=== PATIENT | female | born 1995 | race Caucasian/White ===

== ENCOUNTER 2017-04-22 00:03 | Emergency (ER) | payer OTHER ==
[2017-04-22 00:09] VITALS: BP 111/69; PULSE 91; RESP 18; TEMP 98
--- NOTE | 2017-04-22 00:35 | ED ---
Overdose HPI - General Chief Complaint: Overdose Stated Complaint: Drug Overdose Time Seen by Provider: 04/22/17 00:16 Source: patient, EMS, RN notes reviewed, old records reviewed Mode of arrival: EMS Limitations: no limitations - History of Present Illness Initial Comments: This is a 21 year old female arriving via EMS for CC of drug overdose. Patient mother reports that patient was unresponsive in the shower, and patient mother has IM Narcan given to her due to the amount of narcotics she is prescribed. Patient mother gave 1mg Narcan IM, and patient became more arroused. At that time mother called EMS, the arrived and gave patient 1mg IV Narcan. Patient became alert and oriented X4, and denies any drug use. PAtient mother states that patient likely used mothers prescription drugs however she is not sure. Patient reports that she does want to go home, and denies any previous drug use. Patient refuses to answer any questions about today. She does state that she is not suicidal and has no plans to harm herself. - Related Data Previous Rx's Medication Instructions Recorded Albuterol Nebulized [Ventolin 2.5 mg INHALATION Q4H PRN #2 box 09/09/14 Nebulized] Albuterol Sulfate [Ventolin HFA] 2 puff INHALATION Q4H PRN #1 09/09/14 inhaler Amoxicillin/Potassium Clav 1 each PO Q12HR #20 tab 09/09/14 [Augmentin 875-125 Tablet] Benzonatate [Tessalon Perles] 100 mg PO TID PRN #30 capsule 09/09/14 Allergies Allergy/AdvReac Type Severity Reaction Status Date / Time sulfamethoxazole Allergy Swelling Verified 04/22/17 00:06 [From Bactrim] trimethoprim [From Bactrim] Allergy Swelling Verified 04/22/17 00:06 Review of Systems ROS Statement: Those systems with pertinent positive or pertinent negative responses have been documented in the HPI. ROS Other: All systems not noted in ROS Statement are negative. Past Medical History Past Medical History: No Reported History History of Any Multi-Drug Resistant Organisms: MRSA Date of last positivie culture/infection: 2010 MDRO Source:: left axilla Past Surgical History: Section Past Psychological History: No Psychological Hx Reported Smoking Status: Current every day smoker Past Alcohol Use History: Daily Past Drug Use History: Marijuana General Exam - General Exam Comments Initial Comments: Patient is a hostile 21 year old female, she does not appear to be in any acute distress. PAtient refuses to answer any questions. Limitations: no limitations General appearance: alert, in no apparent distress Head exam: Present: atraumatic, normocephalic, normal inspection Eye exam: Present: normal appearance, PERRL, EOMI. Absent: scleral icterus, conjunctival injection, periorbital swelling ENT exam: Present: normal exam, mucous membranes moist Neck exam: Present: normal inspection. Absent: tenderness, meningismus, lymphadenopathy Respiratory exam: Present: normal lung sounds bilaterally. Absent: respiratory distress, wheezes, rales, rhonchi, stridor Cardiovascular Exam: Present: regular rate, normal rhythm, normal heart sounds. Absent: systolic murmur, diastolic murmur, rubs, gallop, clicks GI/Abdominal exam: Present: soft, normal bowel sounds. Absent: distended, tenderness, guarding, rebound, rigid Extremities exam: Present: normal inspection, full ROM, normal capillary refill. Absent: tenderness, pedal edema, joint swelling, calf tenderness Back exam: Present: normal inspection Neurological exam: Present: alert, oriented X3, CN II-XII intact Psychiatric exam: Present: normal affect, normal mood Skin exam: Present: warm, dry, intact, normal color. Absent: rash Course Vital Signs 04/22/17 00:06 Temperature 98.0 F Pulse Rate 91 Respiratory 18 Rate Blood Pressure 111/69 O2 Sat by Pulse 98 Oximetry Medical Decision Making - Medical Decision Making This is a 21 year old female arriving via EMS for CC of drug overdose. Patient mother reports that patient was unresponsive in the shower, and patient mother has IM Narcan given to her due to the amount of narcotics she is prescribed. Patient mother gave 1mg Narcan IM, and patient became more arroused. At that time mother called EMS, the arrived and gave patient 1mg IV Narcan. Patient became alert and oriented X4, and denies any drug use. PAtient mother states that patient likely used mothers prescription drugs however she is not sure. Patient reports that she does want to go home, and denies any previous drug use. Patient denies suicidal ideation. Patient is alert and oriented. Patient mother and patient are advised for monitoring for the next few hours. Patient mother and patient refuse to stay for monitoring. Patient agrees to safety contract. Discussed that they are to return if ptient becomes unoriented again. Disposition Clinical Impression: Overdose Disposition: HOME SELF-CARE Condition: Good Instructions: Adult Overdose (ED), Opioid Overdose (ED) Additional Instructions: Patient advised to follow-up with a primary care physician or counseling services. Return to the emergency department if any alarming signs or symptoms occur. Referrals: None,Stated [Primary Care Provider] - 1-2 days Time of Disposition: 00:34
== END 2017-04-22 00:49 | disposition home or self-care (01) ==
LOC: EC 00:03 → SUPCPDRO 00:03 → EC 00:49
DX: T40.601A Poisoning by unspecified narcotics, accidental (unintentional), initial encounter (principal); F17.200 Nicotine dependence, unspecified, uncomplicated; Z88.2 Allergy status to sulfonamides
CPT/HCPCS: 99284

== ENCOUNTER 2019-06-18 13:25 | Emergency (ER) | payer OTHER ==
[2019-06-18 13:31] VITALS: BP 121/61; PULSE 73; RESP 18; TEMP 98.1
--- NOTE | 2019-06-18 13:31 | ED ---
Abdominal Pain HPI - General Chief Complaint: Vaginal Bleeding Stated Complaint: Vaginal bleeding Time Seen by Provider: 06/18/19 13:28 - History of Present Illness Initial Comments: 24-year-old female presenting today for chief complaint of vaginal bleeding and cramping. Patient states that 5 weeks ago she had an . She states that since she had consistent on and off bleeding. She states at times it is brown other times is bright red blood. She states that she was in the shower this morning she had bright red large-volume vaginal bleeding. She states she was concerned by the amount of bleeding presented to the [facility] for evaluation. She states roughly nightly she had an ultrasound obtained as well as urinalysis and laboratory studies. She states that she was told she needed to be transferred to [facility] for evaluation by OBGYN, there was concern for retained products. Patient denies any fevers. She denies any foul odor from the vagina or vaginal discharge. Patient states the pain is not severe is more cramping length over the area of her previous . Upon chart review from studies obtained at the [facility] hemoglobin stable no elevation of white blood cell count. HCG (-). Patient appears well there is no signs of acute distress. VS WNL. Patient is afebrile and HR is not elevated. - Related Data Previous Rx's Medication Instructions Recorded Albuterol Nebulized [Ventolin 2.5 mg INHALATION Q4H PRN #2 box 09/09/14 Nebulized] Albuterol Sulfate [Ventolin HFA] 2 puff INHALATION Q4H PRN #1 09/09/14 inhaler Amoxicillin/Potassium Clav 1 each PO Q12HR #20 tab 09/09/14 [Augmentin 875-125 Tablet] Benzonatate [Tessalon Perles] 100 mg PO TID PRN #30 capsule 09/09/14 Allergies Allergy/AdvReac Type Severity Reaction Status Date / Time sulfamethoxazole Allergy Swelling Verified 04/22/17 00:06 [From Bactrim] trimethoprim [From Bactrim] Allergy Swelling Verified 04/22/17 00:06 Review of Systems ROS Statement: Those systems with pertinent positive or pertinent negative responses have been documented in the HPI. ROS Other: All systems not noted in ROS Statement are negative. Past Medical History Past Medical History: No Reported History History of Any Multi-Drug Resistant Organisms: MRSA Date of last positivie culture/infection: 2010 MDRO Source:: left axilla Past Surgical History: Section Past Psychological History: No Psychological Hx Reported Smoking Status: Current every day smoker Past Alcohol Use History: Daily Past Drug Use History: Marijuana General Exam - General Exam Comments Initial Comments: General: The patient is awake and alert, in no distress, and does not appear acutely ill. Eye: Pupils are equal, round and reactive to light, extra-ocular movements are intact. No nystagmus. There is normal conjunctiva bilaterally. No signs of icterus. Ears, nose, mouth and throat: There are moist mucous membranes and no oral lesions. Neck: The neck is supple, there is no tenderness or JVD. Cardiovascular: There is a regular rate and rhythm. No murmur, rub or gallop is appreciated. Respiratory: Lungs are clear to auscultation, respirations are non-labored, breath sounds are equal. No wheezes, stridor, rales, or rhonchi. Gastrointestinal: Soft, non-distended, very minimal discomfort to deep palpation of the pelvic region of the abdomen without masses or organomegaly noted. There is no rebound or guarding present. No CVA tenderness. Bowel sounds are unremarkable. Musculoskeletal: Normal ROM, no tenderness. Strength 5/5. Sensation intact. Radial pulses equal bilaterally 2+. Neurological: A&O x 3. CN II-XII intact, There are no obvious motor or sensory deficits. Coordination appears grossly intact. Speech is normal. Skin: Skin is warm and dry and no rashes or lesions are noted. Psychiatric: Cooperative, appropriate mood & affect, normal judgment. Course Vital Signs 06/18/19 13:28 Temperature 98.1 F Pulse Rate 73 Respiratory 18 Rate Blood Pressure 121/61 O2 Sat by Pulse 98 Oximetry Medical Decision Making - Medical Decision Making 24yo female presenting for transfer from [facility] for vaginal bleeding cramping status post . Concern for retained products. Imaging was reviewed by Dr. Bryant, she evaluated patinet performing pelvic in ER. ABdominal exam revealed minimal tenderness. Patient no leukocytosis hemoglobin stable hCG negative. Patient states she feels fine. No fevers. No malodorous discharge. At this time Dr. Bryant recommends discharge home and she believes this is menorrhagia. Patient is agreeable to this care plan and was discharged. - Lab Data Lab Results 06/18/19 Range/Units 14:05 Trichomonas Ag (Rapid) Negative (Negative) Disposition Clinical Impression: Vaginal bleeding, Menorrhagia Disposition: HOME SELF-CARE Condition: Good Instructions (If sedation given, give patient instructions): Menorrhagia (ED) Additional Instructions: Please use medication as discussed. Please follow-up with family doctor in the next 2 days. Please return to emergency room if the symptoms increase or worsen or for any other concerns. Is patient prescribed a controlled substance at d/c from ED?: No Referrals: Sterling Ambrocio MD [Primary Care Provider] - 1-2 days Time of Disposition: 14:21
--- NOTE | 2019-06-18 14:20 | P.OBCN ---
History of Present Illness Consult date: 06/18/19 Requesting physician: Sergo Solitario (ED consult) Reason for consult: other (Heavy vaginal bleeding status post elective termination of approximately 56 weeks ago.) Chief complaint: Vaginal bleeding status post elective approximately 5- 6 weeks. History of present illness: This is a 24-year-old 4 para 1031 that presents to [facility] with complaints of increasing vaginal bleeding when she was in the shower this morning. Patient states she had an elective completed an outside facility approximate 5-6 weeks ago. Patient states she was given to doses of medication 5 pills each to be taken. Patient states she did have some large clots around that time. Patient states she thought she was around 8 weeks at the time of the termination of . Patient states she woke this morning was in the shower and had blood drawn in running down her leg. She states she was unable to even walk to the bathroom without washcloth between her legs. Patient denies dizziness fevers chills nausea and vomiting. Patient was transferred to [facility]. Upon entering the room patient states her bleeding has slowed quite significantly. She is denying any cramping or discomfort. She states she typically has menstrual cycles every month lasting 6-7 days with a moderate flow, she is currently not taking her control pill and declines the need for one. She does not have a current computer programming professor taking care for the last when she saw was 6 years ago with the of her daughter. She does admit to being a smoker 1-2 packs per day, and did a line of cocaine yesterday "for her birthday" and admits to regular marijuana use. Review of Systems Constitutional: Denies chills, Denies fatigue, Denies fever Ears, nose, mouth and throat: Denies headache Cardiovascular: Denies chest pain, Denies edema, Denies leg edema Respiratory: Denies cough, Denies dyspnea Gastrointestinal: Denies constipation, Denies diarrhea, Denies nausea, Denies vomiting Genitourinary: Reports menorrhagia, Denies dysuria, Denies urge incontinence Menstruation: Reports as per HPI Past Medical History Past Medical History: No Reported History History of Any Multi-Drug Resistant Organisms: MRSA Year Discovered:: 2010 MDRO Source:: left axilla Past Surgical History: Section Past Psychological History: No Psychological Hx Reported Smoking Status: Current every day smoker Past Alcohol Use History: Daily Past Drug Use History: Marijuana Medications and Allergies Home Medications Medication Instructions Recorded Confirmed Type Albuterol Nebulized [Ventolin 2.5 mg INHALATION Q4H PRN #2 box 09/09/14 Rx Nebulized] Albuterol Sulfate [Ventolin HFA] 2 puff INHALATION Q4H PRN #1 09/09/14 Rx inhaler Amoxicillin/Potassium Clav 1 each PO Q12HR #20 tab 09/09/14 Rx [Augmentin 875-125 Tablet] Benzonatate [Tessalon Perles] 100 mg PO TID PRN #30 capsule 09/09/14 Rx Allergies Allergy/AdvReac Type Severity Reaction Status Date / Time sulfamethoxazole Allergy Swelling Verified 04/22/17 00:06 [From Bactrim] trimethoprim [From Bactrim] Allergy Swelling Verified 04/22/17 00:06 Exam Osteopathic Statement: *. No significant issues noted on an osteopathic structural exam other than those noted in the History and Physical/Consult. Vital Signs Temp Pulse Resp BP Pulse Ox 06/18/19 13:28 98.1 F 73 18 121/61 98 Intake and Output 06/17/19 06/18/19 06/18/19 22:59 06:59 14:59 Other: Weight 63.503 kg Targeted physical exam is performed on this patient in general this is a well- nourished well-developed alert female in no acute distress, her breathing is noted to be nonlabored her heart has a regular rate and rhythm her abdomen is noted to be soft nontender on no urinary exam external genitalia is normal for age the vaginal necrosis noted to be pink and well rugated her cervix is noted to be closed there is minimal bleeding in the vaginal vault and no blood coming from the cervix. Cultures are done for gonorrhea chlamydia and Trichomonas. On bimanual exam the uterus is approximately 7 weeks' size, mobile nontender. No adnexal masses are palpated and no adnexal tenderness is noted Assessment and Plan (1) Menorrhagia Current Visit: Yes Status: Acute Code(s): N92.0 - EXCESSIVE AND FREQUENT MENSTRUATION WITH REGULAR CYCLE SNOMED Code(s): 849231495 (2) Status post elective Current Visit: Yes Status: Acute Code(s): Z98.890 - OTHER SPECIFIED POSTPROCEDURAL STATES SNOMED Code(s): 170604917 (3) Cocaine abuse Current Visit: Yes Status: Acute Code(s): F14.10 - COCAINE ABUSE, UNCOMPL ICATED SNOMED Code(s): 07050037 (4) Smoker Current Visit: Yes Status: Acute Code(s): F17.200 - NICOTINE DEPENDENCE, UNSPECIFIED, UNCOMPLICATED SNOMED Code(s): 72568417 (5) Marijuana abuse Current Visit: Yes Status: Acute Code(s): F12.10 - CANNABIS ABUSE, UNCOMPLICATED SNOMED Code(s): 66177801 Plan: Exam findings are discussed with this patient in detail her hormone level is negative today. Given her exam there is no need for further intervention. I do believe this is just a menstrual cycle. She is urged to establish care with a local computer programming professor for routine FREIGHT CLERK care. Contraception is discussed with this patient and she declines. Drug use is addressed in addition. She is stable for discharge home.
[2019-06-20 12:29] LABS: N. gonorrhoeae,PCR Positive (Neg,Equiv); Neisseria Source Cervix
[2019-06-20 12:37] LABS: C. trachomatis,PCR Negative (Neg,Equiv); Chlamydia trachomatis Source Cervix
[2019-06-21] MEDS ORDERED: cefTRIAXone 250 MG VIAL IM STA (11:23)
== END 2019-06-18 14:30 | disposition home or self-care (01) ==
LOC: EC 13:25
DX: N92.0 Excessive and frequent menstruation with regular cycle (principal); F17.200 Nicotine dependence, unspecified, uncomplicated; Z88.2 Allergy status to sulfonamides; Z86.14 Personal history of Methicillin resistant Staphylococcus aureus infection; Z98.890 Other specified postprocedural states
CPT/HCPCS: 87491; 87591; 87808; 99284

== ENCOUNTER → 2019-06-21 | Outpatient (CLI) | payer OTHER ==
[~2019-06-21] MED LIST: cefTRIAXone 250 MG VIAL IM STA
== END ==
LOC: EC 12:02
PROVIDERS: ATTEND Emergency Medicine
DX: A64 Unspecified sexually transmitted disease (principal)
CPT/HCPCS: 96372; J0696

== ENCOUNTER 2024-06-10 17:02 | Observation (INO) | payer OTHER ==
--- NOTE | 2024-06-10 17:33 | ED ---
Female Urogenital HPI - General Source: patient, RN notes reviewed Mode of arrival: EMS Limitations: no limitations - History of Present Illness MD Complaint: vaginal bleeding <Merlyn Valladares - Last Filed: 06/11/24 11:04> <Krystle Martines - Last Filed: 06/11/24 13:51> - General Chief complaint: Vaginal Bleeding Stated complaint: vag bleeding Time Seen by Provider: 06/10/24 17:19 - History of Present Illness Initial comments: This is a 28-year-old female who presents to the emergency department for vaginal bleeding in . Patient is approximately 6-7 weeks and . A couple of hours prior to arrival she started to develop heavy vaginal bleeding and is passing a large amount of clots. Reports generalized abdominal cramping as well. She does not currently have an INFORMATION [employer]. (Merlyn Valladares) - Related Data Home Medications Medication Instructions Recorded Confirmed buprenorphine HCL [Subutex] 8 mg SL TID 06/10/24 06/10/24 Allergies Allergy/AdvReac Type Severity Reaction Status Date / Time sulfamethoxazole Allergy throat Verified 06/10/24 17:41 [From Bactrim] swelling trimethoprim [From Bactrim] Allergy throat Verified 06/10/24 17:41 swelling Review of Systems ROS Other: All systems not noted in ROS Statement are negative. <Merlyn Valladares - Last Filed: 06/11/24 11:04> ROS Other: All systems not noted in ROS Statement are negative. <Krystle Martines - Last Filed: 06/11/24 13:51> ROS Statement: Those systems with pertinent positive or pertinent negative responses have been documented in the HPI. Past Medical History Past Medical History: No Reported History History of Any Multi-Drug Resistant Organisms: MRSA Date of last positivie culture/infection: 2010 MDRO Source:: left axilla Past Surgical History: Section Past Psychological History: No Psychological Hx Reported Past Alcohol Use History: Daily Past Drug Use History: Marijuana <Merlyn Valladares - Last Filed: 06/11/24 11:04> General Exam Limitations: no limitations General appearance: alert, in distress Head exam: Present: atraumatic, normocephalic, normal inspection Respiratory exam: Present: normal lung sounds bilaterally. Absent: respiratory distress, wheezes, rales, rhonchi, stridor Cardiovascular Exam: Present: regular rate, normal rhythm, normal heart sounds. Absent: systolic murmur, diastolic murmur, rubs, gallop, clicks External exam: Present: other (Active vaginal bleeding with a large amount of clots. Nonvisualization on speculum exam due to bleeding.) Neurological exam: Present: alert, oriented X3, CN II-XII intact Psychiatric exam: Present: normal affect, normal mood Skin exam: Present: warm, dry, intact, pallor. Absent: rash <Merlyn Valladares - Last Filed: 06/11/24 11:04> Course Vital Signs 06/10/24 06/10/24 06/10/24 18:00 18:22 18:34 Temperature 98.7 F Pulse Rate 126 H 110 H 116 H Respiratory 16 16 16 Rate Blood Pressure 84/67 92/67 96/57 O2 Sat by Pulse 96 95 96 Oximetry 06/10/24 06/10/24 06/10/24 18:41 18:46 18:51 Temperature Pulse Rate 108 H 124 H 128 H Respiratory 16 20 20 Rate Blood Pressure 97/63 80/55 111/65 O2 Sat by Pulse 100 99 100 Oximetry 06/10/24 06/10/24 06/10/24 19:43 19:47 19:48 Temperature 98.5 F 98.1 F Pulse Rate 126 H 96 124 H Respiratory 20 18 17 Rate Blood Pressure 71/27 64/34 91/57 O2 Sat by Pulse 98 96 95 Oximetry 06/10/24 06/10/24 06/10/24 19:55 20:05 20:23 Temperature 98.2 F 98.8 F 98.6 F Pulse Rate 96 93 96 Respiratory 16 16 16 Rate Blood Pressure 98/55 89/57 100/54 O2 Sat by Pulse 96 97 95 Oximetry 06/10/24 06/10/24 06/10/24 21:14 21:38 21:50 Temperature 98.5 F 98.2 F 98.4 F Pulse Rate 90 112 H 84 Respiratory 16 16 16 Rate Blood Pressure 97/55 103/56 103/56 O2 Sat by Pulse 95 98 98 Oximetry Medical Decision Making - Lab Data Result diagrams: 06/11/24 03:14 06/10/24 18:00 - Radiology Data Radiology results: report reviewed, image reviewed <Merlyn Valladares - Last Filed: 06/11/24 11:04> - Lab Data Result diagrams: 06/11/24 03:14 06/10/24 18:00 <Meme Martinesah Nichol - Last Filed: 06/11/24 13:51> - Medical Decision Making This is a 28 year old female who presents to the emergency department for vaginal bleeding. Was pt. sent in by a medical professional or institution? @ -No Did you speak to anyone other than the patient for history? @ -No Did you review nursing and triage notes? @ -Yes, and I agree, it is accurate with regards to the patient's symptoms. Were old charts reviewed? @ -No Differential Diagnosis? @ -Differential Vaginal Bleeding: Spontaneous , threatened , molar , ectopic , incompetent cervix, placenta previa, uterine rupture, dysfunctional uterine bleeding, hemorrhage, uterine fibroids, malignancy, coagulopathy, PID, cervicitis, adenomyosis, vaginal trauma, this is not meant to be an all- inclusive list. EKG interpreted by me (3pts min.)? @ -Not obtained X-rays interpreted by me (1pt min.)? @ -Not obtained CT interpreted by me (1pt min.)? @ -Not obtained U/S interpreted by me (1pt. min.)? @ -Transvaginal ultrasound obtained. My interpretation identifies no evidence of an IUP. What testing was considered but not performed? (CT, X-rays, U/S, labs)? Why? @ -None What meds were considered but not given? Why? @ -None Did you discuss the management of the patient with other professionals? @ -Yes, Dr. Collins, INFORMATION [employer], who evaluated the patient at bedside and was able to remove the retained products. Requested admission overnight for monitor ing. Did you reconcile home meds? @ -No Was smoking cessation discussed for >3mins.? @ -I discussed smoking cessation for greater than 3 minutes. The risk of smoking were discussed with the patient including but not limited to risks of cancer, stroke, coronary artery disease and COPD. Also discussed with patient were multiple methods of quitting smoking. Lastly we discussed the financial cost of smoking. Was critical care preformed (if so, how long)? @ -No Were there social determinants of health that impacted care today? How? (Homelessness, low income, unemployed, alcoholism, drug addiction, transp ortation, low edu. Level, literacy, decrease access to med. care, mcc, rehab)? @ -No Was there de-escalation of care discussed even if they declined? (Discuss DNR or withdrawal of care, Hospice)? @ -No What co-morbidities impacted this encounter? (DM, HTN, Smoking, COPD, CAD, Cancer, CVA, Hep., AIDS, mental health diagnosis, sleep apnea, morbid obesity)? @ -Smoking, Was patient admitted / discharged? @ -Admitted. On arrival patient had active vaginal bleeding and was passing a large amount of clots. She was also persistently hypotensive and tachycardic. Lab work and pelvic ultrasound was ordered. Initial hemoglobin 10.3. Prior to results returning, there was concern about the patient continuing to decompensate, and case was discussed with Dr. Collins, INFORMATION [employer]. He came to evaluate the patient at bedside and was able to remove the retained products that were largely in the patient's vaginal canal. He requested patient being monitored overnight with repeat CBC in the morning. CBC was ordered to be repeated tomorrow morning and patient was admitted to [facility] service for further management. She was given a transfusion with 1 unit of PRBCs. The rest of the lab [place] [address]. Pelvic ultrasound demonstrates heterogeneous material in the lower uterine cavity and cervix, likely blood and concerning for failed . Case discussed with ED attending Dr. Martines. Undiagnosed new problem with uncertain prognosis? @ -None Drug Therapy requiring intensive monitoring for toxicity (Heparin, Nitro, Insulin, Cardizem)? @ -None Were any procedures done? @ -None Diagnosis/symptom? @ -Incomplete miscarriage with blood clot Acute, or Chronic, or Acute on Chronic? @ -Acute Uncomplicated (without systemic symptoms) or Complicated (systemic symptoms)? @ -Complicated Side effects of treatment? @ -None Exacerbation, Progression, or Severe Exacerbation] @ -Not applicable Poses a threat to life or bodily function? @ -Yes, can lead to further blood loss, which can become life threatening. (Merlyn Valladares) I evaluated the patient myself. She was hypotensive and tachycardic with approximately 300 cc of blood within a bedpan. Pain medications are ordered. Type and screen has been ordered however at this time I did recommend rapid transfusion without crossmatch due to hypotension and tachycardia. Dr. Collins was made aware of the patient's presence in the emergency department and he does arrive to the hospital shortly after being consulted. He does perform an additional bedside evaluation with clot and tissue removal. Critical care time of 35 minutes for transfusion of blood products due to hemodynamic instability. (Krystle Martines) - Lab Data Lab Results 06/10/24 06/10/24 06/10/24 Range/Units 18:00 18:00 18:00 WBC 10.6 (3.8-10.6) k/uL RBC 3.71 L (3.80-5.40) m/uL Hgb 10.3 L (11.4-16.0) gm/dL Hct 30.9 L (34.0-46.0) % MCV 83.4 (80.0-100.0) fL MCH 27.9 (25.0-35.0) pg MCHC 33.5 (31.0-37.0) g/dL RDW 14.4 (11.5-15.5) % Plt Count 291 (150-450) k/uL MPV 8.3 Neutrophils % 86 % Lymphocytes % 10 % Monocytes % 3 % Eosinophils % 1 % Basophils % 0 % Neutrophils # 9.1 H (1.3-7.7) k/uL Lymphocytes # 1.1 (1.0-4.8) k/uL Monocytes # 0.3 (0-1.0) k/uL Eosinophils # 0.1 (0-0.7) k/uL Basophils # 0.0 (0-0.2) k/uL PT 11.8 (10.0-12.5) sec INR 1.1 (<1.2) APTT 19.5 L (22.0-30.0) sec Sodium 134 L (137-145) mmol/L Potassium 3.7 (3.5-5.1) mmol/L Chloride 108 H (98-107) mmol/L Carbon Dioxide 18 L (22-30) mmol/L Anion Gap 8 mmol/L BUN 6 L (7-17) mg/dL Creatinine 0.40 L (0.52-1.04) mg/dL Est GFR (CKD-EPI)AfAm >90 (>60 ml/min/1.73 sqM) Est GFR (CKD-EPI)NonAf >90 (>60 ml/min/1.73 sqM) Glucose 122 H (74-99) mg/dL Calcium 8.4 (8.4-10.2) mg/dL Total Bilirubin 0.9 (0.2-1.3) mg/dL AST 28 (14-36) U/L ALT 15 (4-34) U/L Alkaline Phosphatase 36 L (38-126) U/L Total Protein 5.6 L (6.3-8.2) g/dL Albumin 3.2 L (3.5-5.0) g/dL HCG, Quant 46067.1 mIU/mL Blood Type Blood Type Recheck Bld Type Recheck Status Antibody Screen Crossmatch Spec Expiration Date 06/10/24 Range/Units 18:00 WBC (3.8-10.6) k/uL RBC (3.80-5.40) m/uL Hgb (11.4-16.0) gm/dL Hct (34.0-46.0) % MCV (80.0-100.0) fL MCH (25.0-35.0) pg MCHC (31.0-37.0) g/dL RDW (11.5-15.5) % Plt Count (150-450) k/uL MPV Neutrophils % % Lymphocytes % % Monocytes % % Eosinophils % % Basophils % % Neutrophils # (1.3-7.7) k/uL Lymphocytes # (1.0-4.8) k/uL Monocytes # (0-1.0) k/uL Eosinophils # (0-0.7) k/uL Basophils # (0-0.2) k/uL PT (10.0-12.5) sec INR (<1.2) APTT (22.0-30.0) sec Sodium (137-145) mmol/L Potassium (3.5-5.1) mmol/L Chloride (98-107) mmol/L Carbon Dioxide (22-30) mmol/L Anion Gap mmol/L BUN (7-17) mg/dL Creatinine (0.52-1.04) mg/dL Est GFR (CKD-EPI)AfAm (>60 ml/min/1.73 sqM) Est GFR (CKD-EPI)NonAf (>60 ml/min/1.73 sqM) Glucose (74-99) mg/dL Calcium (8.4-10.2) mg/dL Total Bilirubin (0.2-1.3) mg/dL AST (14-36) U/L ALT (4-34) U/L Alkaline Phosphatase (38-126) U/L Total Protein (6.3-8.2) g/dL Albumin (3.5-5.0) g/dL HCG, Quant mIU/mL Blood Type O Positive Blood Type Recheck O Pos Bld Type Recheck Status No Antibody Screen NEGATIVE Crossmatch See Detail Spec Expiration Date 06/13/2024 - 2299 Disposition <Merlyn Valladares - Last Filed: 06/11/24 11:04> <Krystle Martines - Last Filed: 06/11/24 13:51> Clinical Impression: Incomplete miscarriage with blood clot, Nicotine dependence Disposition: ADMITTED IP TO THIS [facility] Condition: Stable
[2024-06-10 18:18] LABS: Basophils % (A) 0 %; Eosinophils # (A) 0.1 k/uL (0-0.7); Eosinophils % (A) 1 %; HCT 30.9 % (34.0-46.0); HGB 10.3 gm/dL (11.4-16.0); Lymphocytes # (A) 1.1 k/uL (1.0-4.8); Lymphocytes % (A) 10 %; MCH 27.9 pg (25.0-35.0); MCHC 33.5 g/dL (31.0-37.0); MCV 83.4 fL (80.0-100.0); Mean Platelet Volume 8.3; Monocytes # (A) 0.3 k/uL (0-1.0); Monocytes % (A) 3 %; Neutrophils # (A) 9.1 k/uL (1.3-7.7); Neutrophils % (A) 86 %; Platelet Count 291 k/uL (150-450); RBC 3.71 m/uL (3.80-5.40); RDW 14.4 % (11.5-15.5); WBC 10.6 k/uL (3.8-10.6)
[2024-06-10 18:28] LABS: ALT 15 U/L (4-34); AST 28 U/L (14-36); African American GFR (CKD) >90 (>60 ml/min/1.73 sqM); Albumin 3.2 g/dL (3.5-5.0); Alkaline Phosphatase 36 U/L (38-126); Anion Gap 8 mmol/L; Blood Urea Nitrogen 6 mg/dL (7-17); Calcium 8.4 mg/dL (8.4-10.2); Carbon Dioxide 18 mmol/L (22-30); Chloride 108 mmol/L (98-107); Glucose 122 mg/dL (74-99); Non-African American GFR(CKD) >90 (>60 ml/min/1.73 sqM); Sodium 134 mmol/L (137-145); Total Bilirubin 0.9 mg/dL (0.2-1.3); Total Protein 5.6 g/dL (6.3-8.2)
[2024-06-10 18:33] LABS: INR 1.1 (<1.2); Prothrombin Time 11.8 sec (10.0-12.5)
[2024-06-10 18:41] LABS: Partial Thromboplastin Time 19.5 sec (22.0-30.0)
[2024-06-10] MEDS: ACETAMINOPHEN IV (For NPO) 1,000 MG in EMPTY BAG 1 BAG IVPB STA (18:56)
[2024-06-10] MEDS: ONDANSETRON 4 MG/2 ML VIAL IVP STA (18:56)
--- NOTE | 2024-06-10 19:05 | US ---
EXAMINATION TYPE: Ultrasound OB <= 14 week fetus DATE OF EXAM: 06/10/2024 5:50 PM COMPARISON: NONE CLINICAL INDICATION: Female, 28 years old with history of Vaginal bleeding in ; heavy bleedi ng x 4 hours. EXAM PERFORMED: Transabdominal (TA). TV not performed due to patient not feeling well. EXAM MEASUREMENTS: GESTATIONAL AGE / DATING Physician Established: Not yet established Dates by LMP: around 04/19/24 (7 weeks/3 days) EDC: 01/25/24 Dates by First Scan: No previous this is first scan Dates by Current Scan for: No IUP seen at this time MATERNAL ANATOMY Uterus: 11.9 x 5.7 x 5.2cm Right Ovary: not seen Left Ovary: 3.3 x 2.9 x 2.0cm Post CDS / Adnexa: wnl Presence of free fluid: No Presence of corpus luteal cyst: Yes in lt ov measuring 2.0 x 1.7 x 1.1cm Presence of subchorionic bleed: No GESTATION / SURVEY CRL: Not seen MSD: Not seen IUP: No IUP seen at this time Date of LMP: 04/19/24 Beta HcG (if available): N/A Telephone Instrument Supervisor notes: Heterogeneous endometrium seen. Large complex cervix with probable blood clots see n IMPRESSION: 1. No intrauterine identified. There is heterogeneous material within the lower uterine cav ity and cervix, possible blood. 2. Recommend correlation with beta-hCG values. In the setting of a positive test and down t rending beta hCG, findings are concerning for failed . Recommend serial beta-hCG and ultraso und follow-up as clinically indicated to confirm.
[2024-06-10 19:11] LABS: HCG,Quantitative Serum 17009.1 mIU/mL; Potassium 3.7 mmol/L (3.5-5.1)
[2024-06-10] MEDS: MORPHINE SULFATE 4 MG/ML SYRINGE IVP STA (19:30)
[2024-06-10] MEDS ORDERED: NALOXONE 0.4 MG/ML 1 ML VIAL IV PRN (19:33)
[2024-06-10] MEDS ORDERED: HYDROmorphone 1 MG/ML 1 ML SYRINGE IVP PRN (19:33)
[2024-06-10] MEDS ORDERED: HYDROmorphone 0.5 MG/0.5 ML SYRINGE IVP PRN (19:33)
[2024-06-10] MEDS ORDERED: ONDANSETRON 4 MG/2 ML VIAL IVP PRN (19:33)
--- NOTE | 2024-06-10 19:37 | P.HPOB ---
History of Present Illness H&P Date: 06/10/24 Chief Complaint: 6+ weeks , acute vaginal bleeding The patient is a 28-year-old 4 para 2-0-1-2 who is approximately 6 weeks by last menstrual period. She has been aware of her but has had no documentation of viability and no care to this point. She reports that she began having light bleeding approximately a week ago and then today had significant increase in bleeding with heavy clots. In the emergency room, she was noted to have significant amount of bleeding vaginally and was found to have borderline tachycardia with low blood pressures consistent with possible hypovolemia. The emergency room had already instituted/planned initiation of 1 unit of packed red blood cells. I was called to emergently evaluate the patient. She denies any trauma or any other causes for the acute bleeding today. Obstetrical history: 4 para 2-0-1-2 with 2 reportedly term deliveries and 1 early miscarriage. She has not been using any form of contraception. Gynecologic history: The patient denies any history of any infections to include STDs. Review of Systems Review of systems is confined to history of present illness. Past Medical History Past Medical History: No Reported History History of Any Multi-Drug Resistant Organisms: MRSA Date of last positivie culture/infection: 2010 MDRO Source:: left axilla Past Surgical History: Section Additional Past Surgical History / Comment(s): c-sections x2 live births, 1 prev ious miscarriage, 1 previous elective Past Psychological History: No Psychological Hx Reported Past Alcohol Use History: Daily Past Drug Use History: Marijuana Medications and Allergies Home Medications Medication Instructions Recorded Confirmed Type buprenorphine HCL [Subutex] 8 mg SL TID 06/10/24 06/10/24 History Allergies Allergy/AdvReac Type Severity Reaction Status Date / Time sulfamethoxazole Allergy throat Verified 06/10/24 17:41 [From Bactrim] swelling trimethoprim [From Bactrim] Allergy throat Verified 06/10/24 17:41 swelling Exam Vital Signs Temp Pulse Resp BP Pulse Ox 06/10/24 18:51 128 H 20 111/65 100 06/10/24 18:46 124 H 20 80/55 99 06/10/24 18:41 108 H 16 97/63 100 06/10/24 18:34 116 H 16 96/57 96 06/10/24 18:22 110 H 16 92/67 95 06/10/24 18:00 98.7 F 126 H 16 84/67 96 Intake and Output 06/10/24 06/10/24 06/10/24 06:59 14:59 22:59 Other: Weight 63.503 kg In general, this is a well-developed, well-nourished somewhat pale white female in no acute distress. Her EKG demonstrates that she is tachycardic. She has no significant abdominal tenderness. Pelvic examination demonstrates a significant amount of clot in the vagina which was cleared with a ring forceps and gauze. At the cervical os there did appear to be some tissue which I was able to tease out along with clot. Once all of the clot and blood was evacuated from the vagina, the cervix was noted to be open with no ongoing active bleeding of any kind. The speculum examination was terminated and bimanual examination demonstrated her cervix to be dilated to approximately 1-1/2 cm. There was no palpable tissue within the cervix to approximately 2 to 3 cm. The uterus was approximately 5 to 6 weeks in size, midplane, mobile, nontender, normal in shape. The adnexa were nontender and without any palpable masses. Results Result Diagrams: 06/10/24 18:00 06/10/24 18:00 Abnormal Lab Results - Last 24 Hours (Table) 06/10/24 06/10/24 06/10/24 Range/Units 18:00 18:00 18:00 RBC 3.71 L (3.80-5.40) m/uL Hgb 10.3 L (11.4-16.0) gm/dL Hct 30.9 L (34.0-46.0) % Neutrophils # 9.1 H (1.3-7.7) k/uL APTT 19.5 L (22.0-30.0) sec Sodium 134 L (137-145) mmol/L Chloride 108 H (98-107) mmol/L Carbon Dioxide 18 L (22-30) mmol/L BUN 6 L (7-17) mg/dL Creatinine 0.40 L (0.52-1.04) mg/dL Glucose 122 H (74-99) mg/dL Alkaline Phosphatase 36 L (38-126) U/L Total Protein 5.6 L (6.3-8.2) g/dL Albumin 3.2 L (3.5-5.0) g/dL Crossmatch 06/10/24 Range/Units 18:00 RBC (3.80-5.40) m/uL Hgb (11.4-16.0) gm/dL Hct (34.0-46.0) % Neutrophils # (1.3-7.7) k/uL APTT (22.0-30.0) sec Sodium (137-145) mmol/L Chloride (98-107) mmol/L Carbon Dioxide (22-30) mmol/L BUN (7-17) mg/dL Creatinine (0.52-1.04) mg/dL Glucose (74-99) mg/dL Alkaline Phosphatase (38-126) U/L Total Protein (6.3-8.2) g/dL Albumin (3.5-5.0) g/dL Crossmatch See Detail Assessment and Plan (1) Spontaneous Current Visit: Yes Status: Acute Code(s): O03.9 - COMPLETE OR UNSP SPONTANEOUS WITHOUT COMPLICATION SNOMED Code(s): 19386176 Plan: The clot and tissue removed from the vagina will be sent to pathology for confirmation of products of conception. I suspect that the is now c omplete given the lack of ongoing bleeding. Nevertheless, she will be admitted for 23-hour observation and infusion of 1 unit of packed red blood cells. She will remain with nothing by mouth should significant bleeding continue and she required D&C. I have explained the case and the findings to the patient at some length and she has understood.
[2024-06-10 20:29] LABS: HCT 32.2 % (34.0-46.0); HGB 10.9 gm/dL (11.4-16.0); MCH 28.8 pg (25.0-35.0); MCHC 33.9 g/dL (31.0-37.0); MCV 84.9 fL (80.0-100.0); Mean Platelet Volume 8.4; Platelet Count 345 k/uL (150-450); RBC 3.79 m/uL (3.80-5.40); RDW 14.7 % (11.5-15.5); WBC 15.3 k/uL (3.8-10.6)
[2024-06-11 03:40] LABS: Basophils % (A) 0 %; Eosinophils % (A) 0 %; HCT 30.3 % (34.0-46.0); HGB 10.6 gm/dL (11.4-16.0); Lymphocytes # (A) 1.8 k/uL (1.0-4.8); Lymphocytes % (A) 12 %; MCH 29.3 pg (25.0-35.0); MCHC 34.9 g/dL (31.0-37.0); Mean Platelet Volume 8.8; Monocytes # (A) 0.5 k/uL (0-1.0); Monocytes % (A) 4 %; Neutrophils % (A) 83 %; Platelet Count 293 k/uL (150-450); RBC 3.61 m/uL (3.80-5.40); WBC 14.5 k/uL (3.8-10.6)
[2024-06-11] MEDS: PATIENT'S OWN (Buprenorphine Hcl [Subutex] 8 MG Tab.Subl) SUBLINGUAL SCH (05:37)
[2024-06-11] MEDS: ACETAMINOPHEN TAB 325 MG TAB PO PRN (05:41)
[2024-06-11 08:22] VITALS: BP 94/60; PULSE 85; RESP 16; TEMP 98.5
--- NOTE | 2024-06-11 09:05 | P.DS ---
Providers Date of admission: 06/10/24 19:45 Expected date of discharge: 06/11/24 Attending physician: Cody Collins Primary care physician: Brody Wang - Discharge Diagnosis(es) (1) Spontaneous Current Visit: Yes Status: Acute Hospital Course: The patient is a 28-year-old 4 para 2-0-1-2 was approximately 6 to 7 weeks by last menstrual period. She reported that she had had spotting over the course of the last week which significantly increased on the day of presentation to the emergency room with significant clotting. In the emergency room she was noted to have heavy vaginal bleeding and ultrasound demonstrated clot and potential tissue in the cervix and lower uterine segment. I was called urgently to the emergency room to evaluate her secondary to possible hemodynamic decompensation and assess the need for dilation and curettage. In the emergency room, I was able to evacuate all the clot in the vagina as well as what appeared to be tissue within the cervix which was sent to pathology for confirmation of products of conception. Her cervix was noted to be clearly dilated both visually and approximately 1-1/2 cm so on bimanual examination. Following evacuation of the clot and tissue, there was no active ongoing bleeding. She was admitted for 23-hour observation. The emergency room had already initiated transfusion of 1 unit of packed red blood cells given her low blood pressures and borderline tachycardia. After evacuation of the clot and tissue from the emergency room, she had no further significant gushes overnight. Hemoglobin remained stable from the chin to the ER until the following morning when her hemoglobin was noted to be 10.6. Vital signs remained stable and she was afebrile throughout. She was thought to have now had a completed spontaneous and was deemed stable for discharge. She was discharged home to follow-up in the office in 2 weeks for recheck and repeat beta-hCG. Instructions included calling or returning to the emergency room for any significant heavy vaginal bleeding or anything else that concerned her. She understood her instructions and agrees to follow-up as noted above. Discharge medications included any normal medications as well as any [id number] analgesic pain medications that she required. Discharge hemoglobin and hematocrit were 10.6 and 30.3 following 1 unit of packed red blood cells in the emergency room. Initial hemoglobin upon presentation was 10.3 with hematocrit of 30.9. Procedures: #1. Transfusion of 1 unit of packed red blood cells #2. 23-hour observation Patient Condition at Discharge: Stable Plan - Discharge Summary New Discharge Prescriptions: No Action buprenorphine HCL [Subutex] 8 mg SL TID Discharge Medication List buprenorphine HCL [Subutex] 8 mg SL TID 06/10/24 [History] Follow up Appointment(s)/Referral(s): Brody Wang MD [Primary Care Provider] - 1-2 days Cody Collins MD [STAFF PHYSICIAN] - 2 Weeks Discharge Disposition: HOME SELF-CARE
== END 2024-06-11 10:35 | disposition home or self-care (01) ==
LOC: EC 17:02 → 4FBP 19:45
PROVIDERS: ADMIT Obstetrics & Gynecology; ATTEND Obstetrics & Gynecology
DX: O03.9 Complete or unspecified spontaneous abortion without complication (principal); I95.9 Hypotension, unspecified; R00.0 Tachycardia, unspecified; F17.210 Nicotine dependence, cigarettes, uncomplicated; Z88.2 Allergy status to sulfonamides; Z88.1 Allergy status to other antibiotic agents; Z98.891 History of uterine scar from previous surgery
CPT/HCPCS: 36430; 96365; 96375; 99291; 86900; 86901; 88305; 80053; 85025 ×2; 85027; 85610; 85730; 86850; 86920; 84702; 76801; G0378 ×2; P9016; J2405; J0131